=== PATIENT | male | born 1995 | race Caucasian/White ===

== ENCOUNTER 2020-04-25 18:33 | Emergency (ER) | payer OTHER ==
[2020-04-25 18:40] VITALS: TEMP 98.1
--- NOTE | 2020-04-25 19:15 | ED ---
General Adult HPI - General Chief complaint: Fall Stated complaint: slip & fall/hit head Time Seen by Provider: 04/25/20 18:43 Source: patient Mode of arrival: ambulatory Limitations: no limitations - History of Present Illness Initial comments: Patient presents the ED stating that he slipped on some ice (an ice rink) and fell striking the left side of his face about 5 hours ago. Patient states that he immediately developed some dizziness, but this resolved after about 15 seconds. Patient states that he later blew his nose and developed swelling u nder his left eye, and that is why he decided to come to the ED. Patient is complaining of having mild left infraorbital pain at this time. Patient denies LOC, headache, focal numbness/weakness/neuro deficit, visual changes/diplopia, neck/back/extremity pain, chest pain, dyspnea, abdominal pain, nausea or vomiting, or any other symptoms or complaints. Patient states that he believes that his tetanus is up-to-date. - Related Data Home Medications Medication Instructions Recorded Confirmed Loratadine [Claritin] 10 mg PO DAILY 04/25/20 04/25/20 buPROPion XL [Wellbutrin Xl] 150 mg PO DAILY 04/25/20 04/25/20 Previous Rx's Medication Instructions Recorded Amoxic-Pot Clav 875-125Mg 1 tab PO Q12HR 7 Days #14 tab 04/25/20 [Augmentin 875-125] Allergies Allergy/AdvReac Type Severity Reaction Status Date / Time No Known Allergies Allergy Verified 04/25/20 20:41 Review of Systems ROS Statement: Those systems with pertinent positive or pertinent negative responses have been documented in the HPI. ROS Other: All systems not noted in ROS Statement are negative. Past Medical History Past Medical History: No Reported History History of Any Multi-Drug Resistant Organisms: None Reported Past Surgical History: No Surgical Hx Reported Past Psychological History: No Psychological Hx Reported Smoking Status: Never smoker Past Alcohol Use History: Rare Past Drug Use History: None Reported General Exam Limitations: no limitations General appearance: alert, in no apparent distress Head exam: Present: other (A couple of superficial abrasions are noted to the left side of the patient's face; mild left infraorbital swelling and tenderness) Eye exam: Present: normal appearance, PERRL, EOMI ENT exam: Present: normal oropharynx, TM's normal bilaterally, other (No nasal bone tenderness) Neck exam: Present: normal inspection, other (Trachea is in midline). Absent: tenderness Respiratory exam: Present: normal lung sounds bilaterally. Absent: respiratory distress, wheezes, rales, rhonchi, stridor Cardiovascular Exam: Present: regular rate, normal rhythm, normal heart sounds, other (Normal radial pulses bilaterally) GI/Abdominal exam: Present: soft. Absent: distended, tenderness, guarding Extremities exam: Present: full ROM. Absent: tenderness Back exam: Present: normal inspection. Absent: tenderness Neurological exam: Present: alert, oriented X3, CN II-XII intact. Absent: motor sensory deficit Psychiatric exam: Present: normal affect, normal mood Skin exam: Present: warm, dry, normal color Course Vital Signs 04/25/20 04/25/20 18:36 20:55 Temperature 98.1 F Pulse Rate 88 72 Respiratory 20 18 Rate Blood Pressure 145/75 154/95 O2 Sat by Pulse 100 100 Oximetry Medical Decision Making - Medical Decision Making Given that the patient developed left infraorbital subcutaneous air after blowing his nose, I suspect that the patient has an occult facial fracture despite no fracture being seen on his CT. As such, I have given the patient sinus/nose blowing precautions and will start the patient on a course of Augmentin prophylactically. Patient was also instructed to follow up closely with ENT surgery. Patient has no evidence of intraocular muscle entrapment, and he is EOMI. Patient was counseled about facial bone fractures, and he feels comfortable being discharged home at this time. He was clearly explained return and follow-up instructions. He feels comfortable with this plan. - Radiology Data Radiology results: report reviewed (CT facial bones without contrast: No f racture, soft tissue air inferior to left globe) Disposition Clinical Impression: Facial abrasion, Fall Narrative: Suspected occult facial fracture Disposition: HOME SELF-CARE Condition: Stable Instructions (If sedation given, give patient instructions): Facial Fracture (ED), Abrasion (ED) Additional Instructions: Return to the ER if you develop new or worsening pain, a fever, shortness of breath, feeling dizzy or faint, vomiting, or new or worsening symptoms. Follow up closely with her primary care provider, as well as ENT surgery. Prescriptions: Amoxic-Pot Clav 875-125Mg [Augmentin 875-125] 1 tab PO Q12HR 7 Days #14 tab Is patient prescribed a controlled substance at d/c from ED?: No Referrals: Christiano Nunes DO [Primary Care Provider] - 1-2 days Marcellus Rahman MD [STAFF PHYSICIAN] - 1-2 days Time of Disposition: 21:02
--- NOTE | 2020-04-25 20:09 | CT ---
EXAMINATION TYPE: CT facial bones wo con DATE OF EXAM: 04/25/2020 COMPARISON: None HISTORY: facial injury, LT side, from fall CT DLP: 413.9 mGycm Automated exposure control for dose reduction was used. Images obtained from the bottom of the mandible to the top of the frontal sinuses with no contrast. The mandibular ring appears intact. Nasal bone appears intact. The maxilla is intact. There is no elizabeth dence of blowout fracture. Zygomatic arches appear normal. There is no evidence of retro-orbital mass. The globes are symmetric. There is overall fairly normal aeration of the paranasal sinuses. I see no bony destructive process. There is normal aeration of the mastoid sinuses. Visualized calvarium appears intact. There appears to be some soft tissue air at th e inferior aspect of the left globe. No fracture line seen. This could relate to laceration. I do not see convincing evidence for retro-orbital air. IMPRESSION: No fracture. Soft tissue air inferior to the left lobe consistent with a laceration.
[2020-04-25 20:55] VITALS: BP 154/95; PULSE 72; RESP 18
== END 2020-04-25 21:31 | disposition home or self-care (01) ==
LOC: EC 18:33
DX: S00.81XA Abrasion of other part of head, initial encounter (principal); W00.0XXA Fall on same level due to ice and snow, initial encounter; Z79.899 Other long term (current) drug therapy
CPT/HCPCS: 70486; 99283